=== PATIENT | male | born 1985 | race Two or more races ===

== ENCOUNTER 2016-10-09 19:59 | Emergency (ER) | payer MEDICAID ==
[~2016-10-09] VITALS: Ht 167.6 cm; Wt 72.6 kg
[~2016-10-09 19:59] MED LIST: ALBUTEROL SULF8.5 GM INH; ALBUTEROL2.5 MG/3 M INH
[2016-10-09 20:00] VITALS: BP 132/68
[2016-10-09] MEDS ORDERED: LORazepam 1mg tab ORAL ONE (20:30)
[2016-10-09 20:35] LABS: APPEARANCE,URINE CLEAR; KETONES,URINE NEGATIVE (NEGATIVE); LEUKOCYTE ESTERASE ,URINE NEGATIVE (NEGATIVE); NITRITE,URINE NEGATIVE (NEGATIVE); PH,URINE 7 (4.5-8.0); PROTEIN,URINE NEGATIVE (NEGATIVE); UROBILINOGEN,URINE NORMAL MG/DL (0.0-1.0)
--- NOTE | 2016-10-09 21:13 | Emergency Room Report ---
History of Present Illness General Chief Complaint: General Complaint Source: EMS Present Illness HPI The patient presents with shortness of breath and possible asthma. He has a history of anxiety. He was brought in by EMS. They state his lungs are clear. The patient denies any fevers, chills, nausea, vomiting, diarrhea. He does have some chest pain that's mild substernal pressure nonradiating. He denies any cardiac history. The patient does smoke cannabis. Allergies: Coded Allergies: No Known Allergies (Unverified , 11/10/15) Patient History Social History: Reports: drug use Reviewed Nursing Documentation: PMH: Agreed, PSxH: Agreed Nursing Documentation-PMH Past Medical History: No History, Except For Hx Asthma: Yes Physical Exam Vital Signs Date Time Temp Pulse Resp B/P Pulse Ox O2 Delivery O2 Flow Rate FiO2 10/09/16 19:55 98.2 85 24 132/68 100 Room Air Sp02 EP Interpretation: reviewed, normal General Appearance: well appearing, no apparent distress, GCS 15 Head: normocephalic Eyes: bilateral eye normal inspection ENT: moist mucus membranes Neck: supple Respiratory: lungs clear, normal breath sounds Cardiovascular #1: regular rate, rhythm Cardiovascular #2: 2+ radial (R) Gastrointestinal: normal inspection, normal bowel sounds, non tender, no mass, non-distended Musculoskeletal: back normal, gait/station normal, normal range of motion Neurologic: alert, oriented x3, grossly normal Psychiatric: anxious Skin: normal inspection, warm/dry Medical Decision Making Diagnostic Impression: Primary Impression: Anxiety Additional Impression: Urticaria EKG Diagnostic Results Rate: normal Rhythm: NSR ST Segments: no acute changes - RBBB Rhythm Strip Diag. Results EP Interpretation: yes Rhythm: NSR, no PVC's, no ectopy Chest X-Ray Diagnostic Results Chest X-Ray Ordered: Yes # of Views/Limited/Complete: 1 View EP Interpretation: Yes Interpretation: no consolidation, no effusion, no pneumothorax, no acute cardiopulmonary disease Indication: Chest Pain Impression: No acute disease Interpreting ER Provider: Kristofer Status: improved Disposition: HOME, SELF-CARE Condition: Improved Kyle Miner M.D. Oct 09, 2016 21:13
[2016-10-09] MEDS ORDERED: VISTARIL25 M1 PO (21:50)
[2016-10-09] MEDS ORDERED: ALBUTEROL SULF8.5 GM INH (21:50)
[2016-10-09 22:00] VITALS: BP 127/61
[2016-10-09 22:19] VITALS: BP 127/61
--- NOTE | 2016-10-11 20:07 | Cardiology Report ---
APPROVED REPORT EKG Measurement Heart [id number] Normal sinus rhythm Incomplete right bundle branch block Borderline ECG
== END 2016-10-09 22:20 | disposition home or self-care (01) ==
LOC: EDBD 19:59 → EMR 21:45
DX: F41.9 Anxiety disorder, unspecified (principal); L50.9 Urticaria, unspecified; J45.909 Unspecified asthma, uncomplicated
CPT/HCPCS: 71010; 80300; 81003; 93005; 99283